=== PATIENT | female | born 1995 ===

== ENCOUNTER 2017-01-25 17:01 | Emergency (ER) | payer OTHER ==
[~2017-01-25] VITALS: Ht 162.6 cm; Wt 76.7 kg
[2017-01-25 17:05] VITALS: TEMP 36.8; Ht 162.6 cm; Wt 76.7 kg
[2017-01-25] MEDS ORDERED: BCPILLS PO (18:03)
[2017-01-25] MEDS ORDERED: ALBUTEROL HFA 8 GM INHALER INH STA (18:24)
[2017-01-25 18:37] VITALS: BP 118/71; PULSE 88; O2SAT 95
--- NOTE | 2017-01-26 00:33 | EMERGENCY ROOM VISIT NOTE ---
History First contact with patient: 17:53 Chief Complaint: SORETHROAT Stated Complaint: SORE THROAT, CONGESTION, RUNNY NOSE History of Present Illness The patient is a 21 year old female who presents to the Emergency Room with complaints of a sore throat, runny nose, congestion and nonproductive cough. The patient reports that she initially developed sore throat, quickly followed by runny nose and congestion. Her symptoms started 3 days ago. She has tried Motrin and NyQuil without relief. She denies history of asthma or chronic sinusitis. She denies any known sick contacts. She rates her discomfort a 5 out of 10. Review of Systems 10 system review was performed and was negative except for pertinent positives and negatives as indicated in history of present illness Past Medical/Surgical History Medical Problems: (1) No significant past medical history Surgical Problems: (1) No history of previous surgery Family History No significant family history Social History Smoking Status: Never Smoker Alcohol Use: none Drug Use: none Marital Status: single Occupation Status: [employer] Current/Historical Medications Scheduled Control Pills ( Control Pills), 1 TAB PO DAILY Physical Exam Vital Signs Date Time Temp Pulse Resp B/P (MAP) Pulse Ox O2 Delivery O2 Flow Rate FiO2 01/25/17 18:37 88 22 118/71 95 01/25/17 17:06 100 Room Air 01/25/17 17:05 36.8 83 16 108/74 100 Room Air Pain Rating (0-10): 0 Physical Exam CONSTITUTIONAL: Healthy and well nourished. Alert and oriented X 3 with positive affect. She does not appear in any acute distress. HEENT: Normocephalic, atraumatic. Pupils equal, round and reactive. Examination of the ears do show bilateral TM bulging without air-fluid levels or serous/purulent effusion. Clear rhinorrhea is noted. No conjunctival injection. OROPHARYNX: Minimal posterior pharyngeal erythema without tonsillar hypertrophy or exudates. NECK: Full active range of motion without discomfort. LYMPHATICS: No posterior or anterior cervical chain adenopathy. RESPIRATORY: Clear to auscultation bilaterally with no wheezing, crackles, rhonchi or stridor. CARDIOVASCULAR: Regular rate and rhythm with no murmurs, rubs or gallops. GASTROINTESTINAL: Bowel sounds present in all quadrants. Soft and nontender to palpation. MUSCULOSKELETAL: Full range of motion of all joints without discomfort. INTEGUMENTARY: No rash or other significant dermatologic conditions noted. NEUROLOGIC: No focal neurologic deficits noted. Medical Decision & Procedures Laboratory Results Rapid strep was performed and was negative. Strep cultures are pending. Medications Administered Medications (Trade) Dose Ordered Sig/Dameon Route Start Time Stop Time Status Last Admin Dose Admin Albuterol (Ventolin Hfa Inhaler) 2 puffs ONE STAT INH 01/25/17 18:24 01/25/17 18:25 DC 01/25/17 18:35 2 PUFFS ED Course Patient history and physical exam were performed. Nurse's notes were reviewed. Vital signs were reviewed and normal. O2 saturation is 100% on room air, and the patient is afebrile and not tachycardic. The patient was advised that her history and clinical exam findings are consistent with a viral upper respiratory infection. The patient was dispensed a Ventolin metered-dose inhaler with AeroChamber, and instructions for its use. She was provided additional recommendations for OTC medications, including decongestants, expectorants and cough medications. She was also encouraged to alternate ibuprofen and Tylenol as needed for pain and fever. A rapid strep was negative. She was advised that we will contact her if her strep cultures are positive. She was instructed to follow-up with [facility] as needed if symptoms are not improving within the next week. The patient was happy with plan of care, voiced understanding of all discharge instructions, and denied any discomfort at the time of discharge. Medical Decision Medication Reconcilliation Current Medication List: was personally reviewed by me Blood Pressure Screening Patient's blood pressure: Normal blood pressure Impression Primary Impression: Viral upper respiratory infection Departure Information Dispostion Home / Self-Care Condition GOOD Forms HOME CARE DOCUMENTATION FORM, IMPORTANT VISIT INFORMATION Patient Instructions My [facility] Additional Instructions Albuterol 2 puffs every 4-6 hours for cough. Suggest also taking Robitussin DM and Mucinex for additional cough relief. You may take Sudafed for sinus congestion. Ibuprofen 800 mg and/or Tylenol 1000 mg every 8 hours as needed for pain. You may also alternate these medications for more effective pain relief: Ibuprofen --4 HRS--> Tylenol --4 HRS--> ibuprofen --4 HRS--> Tylenol .... Follow-up with [facility] if her symptoms are not improving within a week. We will call you in 48-72 hours with any positive strep cultures. No news is good news.
== END 2017-01-25 18:38 | disposition home or self-care (01) ==
LOC: C.EDB 17:04 → C.EDD 18:38
DX: J06.9 Acute upper respiratory infection, unspecified (principal); Z79.3 Long term (current) use of hormonal contraceptives

== ENCOUNTER 2017-09-22 14:22 | Emergency (ER) | payer OTHER ==
[~2017-09-22] VITALS: Ht 162.6 cm; Wt 82.0 kg
[~2017-09-22 14:22] MED LIST: BCPILLS PO
[2017-09-22 14:26] VITALS: TEMP 36.8; Ht 162.6 cm; Wt 82.0 kg
[2017-09-22] MEDS ORDERED: CEPH500C PO (14:56)
[2017-09-22] MEDS ORDERED: SULF800T23 PO (14:56)
--- NOTE | 2017-09-22 14:56 | EMERGENCY ROOM VISIT NOTE ---
History First contact with patient: 14:30 Chief Complaint: BITE Stated Complaint: SPIDER BITE ON LEG History of Present Illness The patient is a 22 year old female who presents to the Emergency Room via private vehicle with complaints of "spider bite on leg". The patient states that she has been experiencing erythematous eruptions on her body for quite some time. She believes these could be from bites or allergic reaction. She states that most recently she is presenting today with 2 small bites to the left lower leg just below the knee. She notes that she was out by [employer]ne[employer] during the day yesterday and then awoke today with itching and noticed the swelling and redness on the leg. She denies any fevers, chills, recent illness. She did not see anything bite her. There has been some puslike drainage. She has tried Benadryl, bacitracin topically. Review of Systems A complete 10-point Review of Systems was discussed with the patient, with pertinent positives and negatives listed in the History of Present Illness. All remaining Review of Systems questions can be considered negative unless otherwise specified. Past Medical/Surgical History Medical Problems: (1) No significant past medical history Surgical Problems: (1) No history of previous surgery Family History No significant family history Social History Smoking Status: Never Smoker Alcohol Use: none Drug Use: none Marital Status: single Occupation Status: [employer] student Current/Historical Medications Scheduled Control Pills ( Control Pills), 1 TAB PO DAILY Doxycycline (Monohydrate) (Doxycycline), 100 MG PO BID Physical Exam Vital Signs Date Time Temp Pulse Resp B/P (MAP) Pulse Ox O2 Delivery O2 Flow Rate FiO2 09/22/17 17:38 77 13 123/77 100 09/22/17 16:23 85 12 111/76 100 Room Air 09/22/17 14:26 36.8 92 18 109/74 99 Room Air Physical Exam VITAL SIGNS - Vital signs and nursing notes were reviewed. Stable. Afebrile. GENERAL -22-year-old female appearing her stated age who is in no acute distress. Communicates well with provider and answers questions appropriately. SKIN -there is a rather large 11 cm x 12 cm circular erythematous region with 2 small punctate central slightly indurated and darkened erythematous regions. No drainage. This is covered with a glossy ointment. HEAD - NC/AT. EYES - PERRL with EOMI bilaterally. Sclera anicteric. EARS - No deformities of external structures noted on gross examination bilaterally. NOSE - Midline and without cyanosis. No epistaxis or purulent drainage noted. MOUTH/OROPHARYNX - Without perioral cyanosis. NECK - Neck with FROM. No nuchal rigidity. LUNGS - Chest wall symmetric without accessory muscle use, intercostals retractions, or central cyanosis. Normal vesicular breath sounds CTA B/L. No wheezes, rales, or rhonchi appreciated. CARDIAC - RRR with S1/S2. No murmur, rubs, or gallops appreciated. EXTREMITIES - No clubbing or peripheral cyanosis. No pretibial edema present. Erythema as noted above. No tenderness. No drainage. No fluctuance. The erythematous region is located just below the patient's left knee on the lateral aspect of the proximal calf. +5/5 strength noted in UE/LE bilaterally. Medical Decision & Procedures Laboratory Results 09/22/17 16:15 Red Blood Count 4.01, Mean Corpuscular Volume 85.3, Mean Corpuscular Hemoglobin 28.9, Mean Corpuscular Hemoglobin Concent 33.9, Mean Platelet Volume 9.5, Neutrophils (%) (Auto) 73.4, Lymphocytes (%) (Auto) 18.7, Monocytes (%) (Auto) 6.5, Eosinophils (%) (Auto) 1.2, Basophils (%) (Auto) 0.1, Neutrophils # (Auto) 5.34, Lymphocytes # (Auto) 1.36, Monocytes # (Auto) 0.47, Eosinophils # (Auto) 0.09, Basophils # (Auto) 0.01 09/22/17 16:15 Test 09/22/17 15:20 09/22/17 16:15 Human Chorionic Gonadotropin, Qual NEG (NEG) Lyme Disease IgG Antibody NEG (NEG) White Blood Count 7.28 K/uL (4.8-10.8) Red Blood Count 4.01 M/uL (4.2-5.4) Hemoglobin 11.6 g/dL (12.0-16.0) Hematocrit 34.2 % (37-47) Mean Corpuscular Volume 85.3 fL (80-100) Mean Corpuscular Hemoglobin 28.9 pg (25-34) Mean Corpuscular Hemoglobin Concent 33.9 g/dl (32-36) Platelet Count 248 K/uL (130-400) Mean Platelet Volume 9.5 fL (7.4-10.4) Neutrophils (%) (Auto) 73.4 % Lymphocytes (%) (Auto) 18.7 % Monocytes (%) (Auto) 6.5 % Eosinophils (%) (Auto) 1.2 % Basophils (%) (Auto) 0.1 % Neutrophils # (Auto) 5.34 K/uL (1.4-6.5) Lymphocytes # (Auto) 1.36 K/uL (1.2-3.4) Monocytes # (Auto) 0.47 K/uL (0.11-0.59) Eosinophils # (Auto) 0.09 K/uL (0-0.5) Basophils # (Auto) 0.01 K/uL (0-0.2) RDW Standard Deviation 41.3 fL (36.4-46.3) RDW Coefficient of Variation 13.2 % (11.5-14.5) Immature Granulocyte % (Auto) 0.1 % Immature Granulocyte # (Auto) 0.01 K/uL (0.00-0.02) Prothrombin Time 11.1 SECONDS (9.0-12.0) Prothromb Time International Ratio 1.1 (0.9-1.1) Activated Partial Thromboplast Time 26.3 SECONDS (21.0-31.0) Partial Thromboplastin Ratio 1.0 Anion Gap 4.0 mmol/L (3-11) Est Creatinine Clear Calc Drug Dose 120.3 ml/min Estimated GFR () 129.1 Estimated GFR (Non- 111.3 BUN/Creatinine Ratio 19.6 (10-20) Calcium Level 8.9 mg/dl (8.5-10.1) Total Bilirubin 0.3 mg/dl (0.2-1) Aspartate Amino Transf (AST/SGOT) 17 U/L (15-37) Alanine Aminotransferase (ALT/SGPT) 19 U/L (12-78) Alkaline Phosphatase 56 U/L (45-117) Total Protein 8.2 gm/dl (6.4-8.2) Albumin 3.8 gm/dl (3.4-5.0) Globulin 4.4 gm/dl (2.5-4.0) Albumin/Globulin Ratio 0.9 (0.9-2) Medications Administered Medications (Trade) Dose Ordered Sig/Dameon Route Start Time Stop Time Status Last Admin Dose Admin Diphenhydramine HCl (Benadryl Cap) 25 mg NOW STAT PO 09/22/17 16:44 09/22/17 16:46 DC 09/22/17 17:09 25 MG Doxycycline Hyclate (Vibramycin Cap) 100 mg ONE STAT PO 09/22/17 16:44 09/22/17 16:46 DC 09/22/17 17:09 100 MG Medical Decision Patient was seen and evaluated as above in room D7. Review was performed of nursing notes and vital signs. After obtaining a thorough history and physical examination the above work up was performed. She presents to us today with erythema to the left lateral leg. Given the timeframe this is likely an allergic response to some type of insect bite however given her previous history of erythematous eruptions without known cause I did elect to obtain baseline labs. CBC reveals no concerning leukocytosis. There is anemia with hemoglobin 11.6 of which the patient notes a prior history of. This is actually improved from her baseline. Coags negative/normal. Patient's metabolic panel does not reveal any evidence of kidney or liver failure. Electrolytes unremarkable. test is negative. Lyme testing does reveal a negative IgG with equivocal IgM. It is unlikely that the patient's current presentation is that from Lyme however given her history in the recent past of developing erythematous rashes of no known origin/bite I will treat with doxycycline first in case this could be a presentation of Lyme disease with band testing pending, and 2 in the event that she could have a small cellulitis developing on the left calf rather than an inflammatory histamine response. This should also cover any potential MRSA. She is to have this rechecked in 2 days or return with worsening. The region was outlined with a skin marking pen. The patient was educated upon management, had questions answered prior to discharge, and was discharged home in good condition. While here she was given her first dose of Benadryl to help with the itching/erythema as well as doxycycline to cover for any infection/lyme. Case was discussed with the attending physician. In the evaluation and treatment of this patient the following differential diagnoses were entertained: Cellulitis, erythema migrans, coagulopathy, underlying process, among others. Impression Primary Impression: Cellulitis Departure Information Dispostion Home / Self-Care Condition GOOD Prescriptions Doxycycline (Monohydrate) (Doxycycline) 100 Mg Cap 100 MG PO BID for 21 Days, #42 TABS Prov: Viet Rodriguez PA-C 09/22/17 Referrals No Doctor, Assigned (PCP) Patient Instructions My [facility] Additional Instructions You were seen in the emergency department for a red rash with suspected bite to your thigh. At this time your blood work shows a small anemia with hemoglobin at 11.6, and an equivocal IgM testing for Lyme disease. Because of the equivocal Lyme disease testing in the rashes that you are experiencing I will recommend beginning treatment with doxycycline. This is until the band testing comes back which could take up to 7 days. If you do not hear back from us in 7 days please call here at [phone] and ask for a charge nurse to discuss your results. Again this testing could come back negative however if we do not treat at this time that could be lost time in treatment. You have been prescribed Doxycycline to be taken as prescribed. This is an antibiotic. All antibiotics have the potential to cause diarrhea. Stop this medication and contact a medical provider if you were to develop any significant adverse side effects including: wheezing, shortness of breath, passing out, vomiting, or a diffuse rash. Always take antibiotics as directed and COMPLETE the ENTIRE course regardless of the improvement of your symptoms. Protect yourself with sunscreen while on this antibiotic as it increases your skin's sensitivity to the light and cause bad sunburns. In addition, you should be sure to take this pill after eating. Make sure the pill is completely swallowed as this medication can cause irritation to the lining of the esophagus. Do NOT drink milk or eat anything with large amounts of Calcium in them 1 hour prior to taking this medication as this will decrease the effectiveness of the medication. I recommend taking Benadryl 25 mg every 6 hours as needed for the suspected allergic reaction on the leg. The wound on your legs should be rechecked in 48 hours either by returning here or follow-up with the family doctor. Please return if the redness would extend a few inches beyond you develop fevers, chills or new symptoms. Please return with any new/concerning symptoms. Thank you for your time.
[2017-09-22 16:33] LABS: BASO % 0.1 %; BASO ABS # 0.01 K/uL (0-0.2); EOS % 1.2 %; EOS ABS # 0.09 K/uL (0-0.5); HEMATOCRIT 34.2 % (37-47); HEMOGLOBIN 11.6 g/dL (12.0-16.0); IG# 0.01 K/uL (0.00-0.02); LYMPH % 18.7 %; LYMPH ABS # 1.36 K/uL (1.2-3.4); MEAN CELL VOLUME 85.3 fL (80-100); MEAN CORPUSCULAR HEMOGLOBIN 28.9 pg (25-34); MEAN CORPUSCULAR HGB CONC 33.9 g/dl (32-36); MEAN PLATELET VOLUME 9.5 fL (7.4-10.4); MONO % 6.5 %; MONO ABS # 0.47 K/uL (0.11-0.59); NEUT % 73.4 %; NEUT ABS # 5.34 K/uL (1.4-6.5); PLATELET COUNT 248 K/uL (130-400); RED CELL DISTRIBUTION WIDTH CV 13.2 % (11.5-14.5); RED CELL DISTRIBUTION WIDTH SD 41.3 fL (36.4-46.3); WHITE BLOOD COUNT 7.28 K/uL (4.8-10.8)
[2017-09-22 16:44] LABS: INR 1.1 (0.9-1.1); PTT PATIENT 26.3 SECONDS (21.0-31.0)
[2017-09-22] MEDS ORDERED: DOXYCYCLINE HYCLATE 100 MG CAP PO STA (16:44)
[2017-09-22] MEDS ORDERED: DOXY-300 PO (16:48)
[2017-09-22 16:56] LABS: ALBUMIN 3.8 gm/dl (3.4-5.0); CALCIUM 8.9 mg/dl (8.5-10.1); CREATININE 0.76 mg/dl (0.60-1.20); POTASSIUM 3.9 mmol/L (3.5-5.1)
[2017-09-22 16:58] LABS: TOTAL PROTEIN 8.2 gm/dl (6.4-8.2)
[2017-09-22 17:38] VITALS: BP 123/77; PULSE 77; O2SAT 100
--- NOTE | 2017-09-25 17:08 | Pharmacy Progress Note ---
ED Pharmacist Culture FollowUp Date of Service: September 25, 2017. Discussed results of Lyme's testing with Viet PEACOCK. Patient was prescribed doxycycline for 21 days. Patient's IgM came back positive, reflecting a current Lyme's Disease infection. Per Viet calling to let patient know that Lyme's was positive, continue doxycycline and to follow up with primary care provider. Left message [phone]
== END 2017-09-22 17:43 | disposition home or self-care (01) ==
LOC: C.EDB 14:24 → C.EDD 17:43
DX: L03.116 Cellulitis of left lower limb (principal); D64.9 Anemia, unspecified; Z87.2 Personal history of diseases of the skin and subcutaneous tissue